=== PATIENT | male | born 1955 | race Caucasian/White ===

== ENCOUNTER 2018-11-08 13:29 | Emergency (ER) | payer BC ==
[2018-11-08] MEDS: HYDROCODONE/APAP (5/325) TAB PO (14:53)
== END 2018-11-08 16:47 | disposition home or self-care (01) ==
LOC: FTE 16:47
DX: S42.212A Unspecified displaced fracture of surgical neck of left humerus, initial encounter for closed fracture (principal); W01.0XXA Fall on same level from slipping, tripping and stumbling without subsequent striking against object, initial encounter; Y92.9 Unspecified place or not applicable
CPT/HCPCS: 29105; 73030; 99283-25